=== PATIENT | female | born 1980 | race Caucasian/White ===

== ENCOUNTER 2018-10-01 11:08 | Inpatient (IN) | payer MEDICAID ==
[2018-10-01 12:09] LABS: ADD MAN DIFF? NO
[2018-10-01 12:14] LABS: WHITE BLOOD COUNT 7.6 10^3/ul (4.8-10.8)
[2018-10-01 12:14] LABS: BASOPHILS % 0.4 % (0.0-2.0); EOSINOPHILS # 0.1 10^3/ul (0.0-0.5); EOSINOPHILS % 0.9 % (0.0-7.0); HEMATOCRIT 42.9 % (37.0-47.0); HEMOGLOBIN 14.3 g/dl (12.0-16.0); MEAN CORPUSCULAR HEMOGLOBIN 28.7 pg (29.0-33.0); MEAN CORPUSCULAR HGB CONC 33.3 g/dl (32.0-37.0); MEAN PLATELET VOLUME 9.7 fl (7.4-10.4); MONOCYTE # 0.7 10^3/ul (0.3-0.9); MONOCYTES % 8.7 % (0.0-11.0); NEUTROPHIL # 3.9 10^3/ul (1.6-7.5); NEUTROPHILS % 50.7 % (39.0-77.0); PLATELET COUNT 265 10^3/UL (140-415); RED BLOOD COUNT 4.99 10^6/ul (4.20-5.40); RED CELL DISTRIBUTION WIDTH 12.7 % (11.5-14.5)
[2018-10-01 12:18] LABS: ADD UMIC NO; UR ASCORBIC ACID NEGATIVE (NEGATIVE); UR BILIRUBIN (Dip) NEGATIVE (NEGATIVE); UR BLOOD (Dip) NEGATIVE (NEGATIVE); UR CLARITY CLEAR (CLEAR); UR COLOR YELLOW (YELLOW); UR GLUCOSE (Dip) NEGATIVE (NEGATIVE); UR KETONES (Dip) NEGATIVE (NEGATIVE); UR LEUKOCYTE ESTERASE (Dip) NEGATIVE Leu/ul (NEGATIVE); UR NITRITE (Dip) NEGATIVE (NEGATIVE); UR TOTAL PROTEIN (Dip) NEGATIVE (NEGATIVE); UR UROBILINOGEN (Dip) NEGATIVE (NEGATIVE)
[2018-10-01 12:32] LABS: ANION GAP 9 (5-13); BLOOD UREA NITROGEN 15 mg/dl (7-20); CALCIUM 10.1 mg/dl (8.4-10.2); CARBON DIOXIDE 26 mmol/L (21-31); CHLORIDE 104 mmol/L (97-110); CREATININE 0.66 mg/dl (0.44-1.00); Estimated GFR > 60 mL/min (>60); GLUCOSE 99 mg/dl (70-220); POTASSIUM 3.8 mmol/L (3.5-5.1); SODIUM 139 mmol/L (135-144)
[2018-10-01 12:37] LABS: INR 0.85; PROTIME 11.7 Sec (11.9-14.9); PT RATIO 0.9
[2018-10-01 12:38] LABS: PARTIAL THROMBOPLASTIN TIME 25.3 Sec (23.0-35.0)
[2018-10-01] MEDS ORDERED: ACETAMINOPHEN 325 MG TAB PO (13:30)
[2018-10-01] MEDS ORDERED: ONDANSETRON 4 MG INJ IV (13:30)
[2018-10-01] MEDS: ACETAMINOPHEN 500 MG TAB PO (17:52)
[2018-10-01] MEDS: RANITIDINE 150 MG TAB PO (20:32)
[2018-10-01] MEDS: IBUPROFEN 600 MG TAB PO (23:44)
[2018-10-01] MEDS: SUMATRIPTAN 50 MG TAB PO (23:45)
[2018-10-01] MEDS: PROPRANOLOL 20 MG TAB PO (23:45)
[2018-10-02] MEDS: LORAZEPAM 2 MG INJ IV (00:47)
[2018-10-02 06:21] LABS: ADD MAN DIFF? NO
[2018-10-02 06:28] LABS: BASOPHILS % 0.5 % (0.0-2.0); EOSINOPHILS # 0.1 10^3/ul (0.0-0.5); EOSINOPHILS % 1.5 % (0.0-7.0); HEMATOCRIT 43.2 % (37.0-47.0); HEMOGLOBIN 14.2 g/dl (12.0-16.0); LYMPHOCYTES # 2.2 10^3/ul (0.8-2.9); MEAN CORPUSCULAR HEMOGLOBIN 28.2 pg (29.0-33.0); MEAN CORPUSCULAR HGB CONC 32.9 g/dl (32.0-37.0); MEAN CORPUSCULAR VOLUME 85.9 fl (82.0-101.0); MEAN PLATELET VOLUME 9.8 fl (7.4-10.4); MONOCYTE # 0.5 10^3/ul (0.3-0.9); MONOCYTES % 8.9 % (0.0-11.0); NEUTROPHIL # 3.2 10^3/ul (1.6-7.5); NEUTROPHILS % 52.9 % (39.0-77.0); PLATELET COUNT 243 10^3/UL (140-415); RED BLOOD COUNT 5.03 10^6/ul (4.20-5.40); RED CELL DISTRIBUTION WIDTH 12.5 % (11.5-14.5)
[2018-10-02] MEDS: RANITIDINE 150 MG TAB PO ×2 (08:40→20:08)
[2018-10-02] MEDS: ASPIRIN (EC) 81 MG TAB PO (08:40)
[2018-10-02] MEDS: ENOXAPARIN 40 MG/0.4 ML SYG SC (08:45)
[2018-10-02] MEDS: IOHEXOL 100 ML (10:19)
[2018-10-02] MEDS: SOD CHLORIDE 0.9% 100 ML (10:19)
[2018-10-02 14:27] LABS: HEPATITIS B SURFACE ANTIGEN NEGATIVE (NEGATIVE)
[2018-10-02 14:45] LABS: HEPATITIS C VIRAL ANTIBODY NEGATIVE (NEGATIVE)
[2018-10-02] MEDS ORDERED: IOHEXOL 100 ML (17:17)
[2018-10-02] MEDS ORDERED: SOD CHLORIDE 0.9% 100 ML (17:17)
[2018-10-02 17:44] LABS: RHEUMATOID FACTOR NEGATIVE (NEGATIVE)
[2018-10-02] MEDS: IBUPROFEN 600 MG TAB PO (18:20)
[2018-10-02] MEDS ORDERED: IBUPROFEN 600 MG TAB PO (18:30)
[2018-10-02] MEDS: TOPIRAMATE 25 MG TAB PO (20:08)
[2018-10-02] MEDS: PROPRANOLOL 20 MG TAB PO (20:08)
[2018-10-02] MEDS: SUMATRIPTAN 50 MG TAB PO (20:08)
[2018-10-02] MEDS: DEXAMETHASONE 1 MG TAB PO (23:22)
[2018-10-03] MEDS: RANITIDINE 150 MG TAB PO ×2 (08:17→21:16)
[2018-10-03] MEDS: ASPIRIN (EC) 81 MG TAB PO (08:17)
[2018-10-03] MEDS: TOPIRAMATE 25 MG TAB PO ×2 (08:17→21:16)
[2018-10-03] MEDS: ENOXAPARIN 40 MG/0.4 ML SYG SC (08:23)
[2018-10-03 08:57] LABS: C-REACTIVE PROTEIN HIGH SENSI 0.49 mg/dl (0.00-0.74)
[2018-10-03 09:44] LABS: ERYTHROCYTE SEDIMENTATION RATE 37 mm/Hr (0-20)
[2018-10-04] MEDS: METHYLPREDNISOLONE 125 MG INJ IV ×4 (00:47→18:15)
[2018-10-04] MEDS: RANITIDINE 150 MG TAB PO ×2 (08:16→19:26)
[2018-10-04] MEDS: ASPIRIN (EC) 81 MG TAB PO (08:17)
[2018-10-04] MEDS: TOPIRAMATE 25 MG TAB PO ×2 (08:17→19:26)
[2018-10-04] MEDS: ENOXAPARIN 40 MG/0.4 ML SYG SC (08:21)
[2018-10-04] MEDS: IBUPROFEN 600 MG TAB PO (12:26)
[2018-10-04] MEDS: SUMATRIPTAN 50 MG TAB PO (12:26)
[2018-10-04] MEDS: PROPRANOLOL 20 MG TAB PO (12:29)
[2018-10-05] MEDS: METHYLPREDNISOLONE 125 MG INJ IV ×3 (00:16→11:21)
[2018-10-05] MEDS: ASPIRIN (EC) 81 MG TAB PO (08:29)
[2018-10-05] MEDS: TOPIRAMATE 25 MG TAB PO (08:30)
[2018-10-05] MEDS: RANITIDINE 150 MG TAB PO (08:30)
[2018-10-05] MEDS: ENOXAPARIN 40 MG/0.4 ML SYG SC (08:38)
== END 2018-10-05 15:47 | disposition home or self-care (01) | DRG 312 ==
LOC: 6WM 14:32 → E/R 11:08 → 6WM 10-02 16:49
DX: R55 Syncope and collapse (principal); M35.2 Behcet's disease; E04.1 Nontoxic single thyroid nodule; E66.01 Morbid (severe) obesity due to excess calories; G47.419 Narcolepsy without cataplexy; G43.909 Migraine, unspecified, not intractable, without status migrainosus; G44.89 Other headache syndrome; I10 Essential (primary) hypertension; K21.9 Gastro-esophageal reflux disease without esophagitis; L02.02 Furuncle of face; M06.9 Rheumatoid arthritis, unspecified; M25.521 Pain in right elbow; R41.2 Retrograde amnesia; R20.0 Anesthesia of skin; Z68.39 Body mass index [BMI] 39.0-39.9, adult
CPT/HCPCS: 36415; 70450; 70498; 70551; 71045; 71275; 72040; 73080-RT; 74018; 76536; 80048; 81003; 81025; 82533; 84443; 84703; 85025; 85610; 85651; 85730; 86140; 86430; 86803; 87340; 93005; 93306; 93880; 99285-25; G0378